=== PATIENT | male | born 1950 | race African-American/Black ===

== ENCOUNTER 2021-09-20 20:59 | Emergency (ER) | payer MEDICARE ==
[2021-09-20 21:43] LABS: #Eosinphils 0.2 thou/uL (0.0-0.7); #Lymphocytes 1.8 thou/uL (1.20-3.40); #Monocytes 0.6 thou/uL (0.11-0.59); #Neutrophils 3.2 thou/uL (1.40-6.50); %Basophils 0.5 % (0.0-1.0); %Eosinophils 3.8 % (0.0-10.0); %Lymphocytes 31.3 % (21.0-51.0); %Monocytes 9.5 % (0.0-10.0); %Neutrophils 54.8 % (42.0-75.0); Hemoglobin 12.7 g/dL (14.0-18.0); Mean Corpuscular HGB CONC 30.1 g/dL (32.0-36.0); Mean Corpuscular Hemoglobin 29.9 pg (27.0-31.0); Mean Corpuscular Volume 99.3 fL (78.0-98.0); Mean Platelet Volume 8.6 fL (7.4-10.4); Platelet Count 151 thou/uL (130-400); RBC Distribution Width 13.3 % (11.5-14.5); Red Blood Cell (RBC) Count 4.25 mill/uL (4.70-6.10); White Blood Cell (WBC) Count 5.8 thou/uL (4.8-10.8)
[2021-09-20 22:02] LABS: ALT (SGPT) 11 U/L (8-55); AST (SGOT) 19 U/L (5-34); Albumin 4.1 g/dL (3.4-4.8); Alkaline Phosphatase 70 U/L (40-110); Anion Gap 13 mmol/L (10-20); BUN (Urea Nitrogen) 40 mg/dL (8.4-25.7); Bilirubin, Total 0.4 mg/dL (0.2-1.2); Calc. Creatinine Clearance 0 mL/min (70-130); Calcium 9.1 mg/dL (7.8-10.44); Carbon Dioxide 21 mmol/L (23-31); Chloride 110 mmol/L (98-107); Globulin 3.2 g/dL (2.4-3.5); Glucose 89 mg/dL (80-115); Potassium 4.3 mmol/L (3.5-5.1); Protein, Total 7.3 g/dL (5.8-8.1); Sodium 140 mmol/L (136-145)
[2021-09-21] MEDS ORDERED: Aspirin Chewable 81 MG TAB ONE (00:14)
[2021-09-21 01:03] LABS: SARS-CoV-2 NAA Rapid Test Not Detected (NotDetected)
== END 2021-09-21 02:59 | disposition short-term general hospital (02) ==
LOC: MADERS 20:59
DX: G45.9 Transient cerebral ischemic attack, unspecified (principal); I12.9 Hypertensive chronic kidney disease with stage 1 through stage 4 chronic kidney disease, or unspecified chronic kidney disease; N18.9 Chronic kidney disease, unspecified; E87.2 Acidosis; Z20.822 Contact with and (suspected) exposure to COVID-19; F17.200 Nicotine dependence, unspecified, uncomplicated
CPT/HCPCS: 36416; 70450; 71045; 80053; 84484; 85025; 85610; 93005; 36415-59; U0002

== ENCOUNTER 2021-12-26 12:33 | Outpatient (CLI) | payer MEDICARE | END 2021-12-26 12:34 | disposition home or self-care (01) | LOC: MADLAB 12:33 | PROVIDERS: ATTEND Family Medicine | DX: M86.9 Osteomyelitis, unspecified (principal) | CPT/HCPCS: 87070; 87077; 87186; 87205 ==

== ENCOUNTER 2022-02-16 15:22 | Outpatient (CLI) | payer MEDICARE ==
[2022-02-16 16:21] LABS: ALT (SGPT) 72 U/L (8-55); AST (SGOT) 60 U/L (5-34); Albumin 3.9 g/dL (3.4-4.8); Alkaline Phosphatase 60 U/L (40-110); Anion Gap 17 mmol/L (10-20); BUN (Urea Nitrogen) 35 mg/dL (8.4-25.7); Bilirubin, Total 1.3 mg/dL (0.2-1.2); CRP (Inflammatory) 4.95 mg/dL (= or < 0.5); Calc. Creatinine Clearance 0 mL/min (70-130); Calcium 8.6 mg/dL (7.8-10.44); Carbon Dioxide 19 mmol/L (23-31); Chloride 108 mmol/L (98-107); Globulin 2.4 g/dL (2.4-3.5); Glucose 86 mg/dL (80-115); Potassium 4.4 mmol/L (3.5-5.1); Protein, Total 6.3 g/dL (5.8-8.1); Sodium 140 mmol/L (136-145)
[2022-02-16 16:49] LABS: #Eosinphils 0.2 thou/uL (0.0-0.7); #Lymphocytes 1.1 thou/uL (1.20-3.40); #Monocytes 0.6 thou/uL (0.11-0.59); %Basophils 0.6 % (0.0-1.0); %Lymphocytes 13.9 % (21.0-51.0); %Monocytes 7.1 % (0.0-10.0); %Neutrophils 76.5 % (42.0-75.0); Anisocytosis SLIGHT = 6-15 cells (100X) (0-5/hpf); Hemoglobin 9.2 g/dL (14.0-18.0); Hypochromia SLIGHT = 6-15 cells (100X) (0-5/hpf); MDiff Complete? YES; Mean Corpuscular HGB CONC 30.3 g/dL (32.0-36.0); Mean Corpuscular Hemoglobin 29.4 pg (27.0-31.0); Mean Corpuscular Volume 96.9 fL (78.0-98.0); Mean Platelet Volume 11.2 fL (7.4-10.4); Platelet Count 112 thou/uL (130-400); Platelet Morphology Comment Appears Decreased; RBC Distribution Width 14.2 % (11.5-14.5); Red Blood Cell (RBC) Count 3.12 mill/uL (4.70-6.10); White Blood Cell (WBC) Count 7.9 thou/uL (4.8-10.8)
[2022-02-16 23:21] LABS: Follow-up Hematology Comp? YES; Follow-up Result - Hematology REPORT FAXED
== END 2022-02-16 15:23 | disposition home or self-care (01) ==
LOC: MADLAB 15:22
PROVIDERS: ATTEND Orthopaedic Surgery Sports Medicine
DX: M86.151 Other acute osteomyelitis, right femur (principal); B96.20 Unspecified Escherichia coli [E. coli] as the cause of diseases classified elsewhere; Z79.2 Long term (current) use of antibiotics
CPT/HCPCS: 80053; 85025; 85652; 86140

== ENCOUNTER 2022-02-22 13:43 | Inpatient (IN) | payer MEDICARE ==
[2022-02-22 15:56] LABS: #Basophils 0.1 thou/uL (0.0-0.2); #Eosinphils 0.1 thou/uL (0.0-0.7); #Lymphocytes 1.1 thou/uL (1.20-3.40); #Monocytes 0.6 thou/uL (0.11-0.59); #Neutrophils 7.1 thou/uL (1.40-6.50); %Basophils 0.6 % (0.0-1.0); %Eosinophils 1.1 % (0.0-10.0); %Lymphocytes 12.3 % (21.0-51.0); Hemoglobin 9.5 g/dL (14.0-18.0); Mean Corpuscular HGB CONC 31.6 g/dL (32.0-36.0); Mean Corpuscular Hemoglobin 30.1 pg (27.0-31.0); Mean Corpuscular Volume 95.3 fL (78.0-98.0); Mean Platelet Volume 9.8 fL (7.4-10.4); Platelet Count 188 thou/uL (130-400); RBC Distribution Width 14.1 % (11.5-14.5); Red Blood Cell (RBC) Count 3.15 mill/uL (4.70-6.10); White Blood Cell (WBC) Count 8.9 thou/uL (4.8-10.8)
[2022-02-22 16:09] LABS: ALT (SGPT) 22 U/L (8-55); AST (SGOT) 23 U/L (5-34); Albumin 3.8 g/dL (3.4-4.8); Alkaline Phosphatase 58 U/L (40-110); Anion Gap 17 mmol/L (10-20); BUN (Urea Nitrogen) 32 mg/dL (8.4-25.7); Calc. Creatinine Clearance 0 mL/min (70-130); Calcium 8.8 mg/dL (7.8-10.44); Carbon Dioxide 16 mmol/L (23-31); Chloride 112 mmol/L (98-107); Globulin 2.8 g/dL (2.4-3.5); Glucose 87 mg/dL (80-115); Potassium 4.3 mmol/L (3.5-5.1); Protein, Total 6.6 g/dL (5.8-8.1); Sodium 141 mmol/L (136-145)
[2022-02-22] MEDS ORDERED: HYDROcodone/Acetaminophen 5/325 mg Tablet PO PRN (23:21)
[2022-02-22] MEDS ORDERED: HYDROcodone/Acetaminophen 10/325 mg Tablet PO PRN (23:21)
[2022-02-22] MEDS ORDERED: Acetaminophen 325 MG TAB PO PRN (23:21)
[2022-02-22] MEDS ORDERED: Ondansetron ODT 4 MG TAB PO PRN (23:21)
[2022-02-22] MEDS ORDERED: tiZANidine HCl 4 MG TAB PO PRN (23:24)
[2022-02-23 00:17] VITALS: BMI 17.8
[2022-02-23] MEDS: Losartan Potassium 50 MG TAB PO SCH (08:55)
[2022-02-23] MEDS: Aspirin 81 mg Enteric Coated Tablet PO SCH (08:57)
[2022-02-23] MEDS: Dorzolamide HCl 2% Ophth Soln 10 ml Bottle L EYE SCH ×2 (08:59→20:36)
[2022-02-23] MEDS ORDERED: Famotidine 20 MG TAB PO SCH (09:00)
[2022-02-23] MEDS: Pilocarpine 2% Ophth Drops 15 ML BOT L EYE SCH ×4 (09:00→20:37)
[2022-02-23] MEDS: IMATINIB MESYLATE 100 MG PO SCH ×3 (09:07→17:01)
[2022-02-23] MEDS ORDERED: Ampicillin/Sulbactam 3 GM in Sodium Chloride 0.9% 100 ML IVPB SCH (12:30)
[2022-02-23 19:50] LABS: SARS-CoV-2 PCR by NAA Not Detected (NotDetected)
[2022-02-23] MEDS: Gabapentin 300 MG CAP PO SCH (20:35)
[2022-02-23] MEDS: Atorvastatin Calcium 40 MG TAB PO SCH (20:35)
[2022-02-23] MEDS: Ampicillin/Sulbactam 3 GM in Sodium Chloride 0.9% 100 ML IVPB SCH (20:35)
[2022-02-23] MEDS: Cyclobenzaprine 10 MG TAB PO SCH (20:36)
[2022-02-23] MEDS: Latanoprost 0.005% Ophth Soln 2.5 ml Bottle EA EYE SCH (20:37)
[2022-02-23] MEDS: LOTEPREDNOL ETABONATE R EYE SCH (20:39)
[2022-02-24] MEDS: Pilocarpine 2% Ophth Drops 15 ML BOT L EYE SCH ×4 (09:21→21:02)
[2022-02-24] MEDS: Aspirin 81 mg Enteric Coated Tablet PO SCH (09:27)
[2022-02-24] MEDS: Losartan Potassium 50 MG TAB PO SCH (09:27)
[2022-02-24] MEDS: IMATINIB MESYLATE 100 MG PO SCH ×3 (09:28→17:38)
[2022-02-24] MEDS: Ampicillin/Sulbactam 3 GM in Sodium Chloride 0.9% 100 ML IVPB SCH ×2 (09:30→20:47)
[2022-02-24] MEDS: Dorzolamide HCl 2% Ophth Soln 10 ml Bottle L EYE SCH ×2 (09:36→21:05)
[2022-02-24] MEDS ORDERED: LOTEPREDNOL ETABONATE R EYE SCH (13:30)
[2022-02-24] MEDS: Nystatin 500,000 UNITS/5 ML UDCUP SSW SCH ×2 (17:37→21:02)
[2022-02-24] MEDS: Gabapentin 300 MG CAP PO SCH (20:52)
[2022-02-24] MEDS: Atorvastatin Calcium 40 MG TAB PO SCH (20:52)
[2022-02-24] MEDS: Cyclobenzaprine 10 MG TAB PO SCH (20:56)
[2022-02-24] MEDS: Latanoprost 0.005% Ophth Soln 2.5 ml Bottle EA EYE SCH (21:00)
[2022-02-25 07:33] VITALS: BP 112/58; TEMP 97.1
[2022-02-25] MEDS: IMATINIB MESYLATE 100 MG PO SCH ×2 (08:43→11:47)
[2022-02-25] MEDS: Ampicillin/Sulbactam 3 GM in Sodium Chloride 0.9% 100 ML IVPB SCH (08:44)
[2022-02-25] MEDS: Dorzolamide HCl 2% Ophth Soln 10 ml Bottle L EYE SCH (08:45)
[2022-02-25] MEDS: Aspirin 81 mg Enteric Coated Tablet PO SCH (08:45)
[2022-02-25] MEDS: Losartan Potassium 50 MG TAB PO SCH (08:46)
[2022-02-25] MEDS: Nystatin 500,000 UNITS/5 ML UDCUP SSW SCH (08:47)
[2022-02-25] MEDS: LOTEPREDNOL ETABONATE R EYE SCH (08:47)
[2022-02-25] MEDS: Pilocarpine 2% Ophth Drops 15 ML BOT L EYE SCH (08:51)
[2022-02-25] MEDS ORDERED: LOTEPREDNOL ETABONATE R EYE SCH (09:00)
[2022-02-25] MEDS ORDERED: LUMIGAN 0.01% EA EYE SCH (21:00)
[2022-02-25] MEDS ORDERED: Latanoprost 0.005% Ophth Soln 2.5 ml Bottle EA EYE SCH (21:00)
== END 2022-02-25 13:27 | disposition swing bed (61) | DRG 540 ==
LOC: MADERS 13:43 → MADMS 19:29
PROVIDERS: ADMIT Family Medicine; ATTEND Family Medicine
DX: M86.9 Osteomyelitis, unspecified (principal); C92.10 Chronic myeloid leukemia, BCR/ABL-positive, not having achieved remission; N18.4 Chronic kidney disease, stage 4 (severe); B37.0 Candidal stomatitis; R26.81 Unsteadiness on feet; I12.9 Hypertensive chronic kidney disease with stage 1 through stage 4 chronic kidney disease, or unspecified chronic kidney disease; S81.801A Unspecified open wound, right lower leg, initial encounter; X58.XXXA Exposure to other specified factors, initial encounter; H40.9 Unspecified glaucoma; F17.210 Nicotine dependence, cigarettes, uncomplicated; Z20.822 Contact with and (suspected) exposure to COVID-19; Z86.73 Personal history of transient ischemic attack (TIA), and cerebral infarction without residual deficits; Z79.82 Long term (current) use of aspirin; Z98.890 Other specified postprocedural states
CPT/HCPCS: 36415; 80053; 83605; 85025; 86140; 87040; 87070; 87205; 97602; 99284; J0295; J3490; U0003; U0005

== ENCOUNTER 2022-02-25 13:32 | Inpatient (IN) | payer MEDICARE ==
[2022-02-25] MEDS ORDERED: HYDROcodone/Acetaminophen 5/325 mg Tablet PO PRN (16:34)
[2022-02-25] MEDS ORDERED: HYDROcodone/Acetaminophen 10/325 mg Tablet PO PRN (16:34)
[2022-02-25] MEDS ORDERED: Ondansetron ODT 4 MG TAB SL PRN (16:34)
[2022-02-25] MEDS ORDERED: tiZANidine HCl 4 MG TAB PO PRN (16:34)
[2022-02-25] MEDS: Nystatin 500,000 UNITS/5 ML UDCUP SSW SCH ×2 (17:03→20:46)
[2022-02-25] MEDS: Pilocarpine 2% Ophth Drops 15 ML BOT L EYE SCH ×2 (17:03→20:48)
[2022-02-25] MEDS: Ampicillin/Sulbactam 3 GM VIAL IVPB SCH (20:45)
[2022-02-25] MEDS: Gabapentin 300 MG CAP PO SCH (20:45)
[2022-02-25] MEDS: Atorvastatin Calcium 40 MG TAB PO SCH (20:45)
[2022-02-25] MEDS: Cyclobenzaprine 10 MG TAB PO SCH (20:45)
[2022-02-25] MEDS: Dorzolamide HCl 2% Ophth Soln 10 ml Bottle EA EYE SCH (20:46)
[2022-02-25] MEDS ORDERED: Latanoprost 0.005% Ophth Soln 2.5 ml Bottle EA EYE SCH (21:00)
[2022-02-25] MEDS ORDERED: BIMATOPROST EA EYE SCH (21:00)
[2022-02-25] MEDS ORDERED: LUMIGAN 0.01% EA EYE SCH (21:00)
[2022-02-25] MEDS ORDERED: BOT EA EYE SCH (21:00)
[2022-02-26] MEDS: Nystatin 500,000 UNITS/5 ML UDCUP SSW SCH ×4 (08:54→20:42)
[2022-02-26] MEDS: Losartan Potassium 50 MG TAB PO SCH (08:54)
[2022-02-26] MEDS: Aspirin 81 mg Enteric Coated Tablet PO SCH (08:54)
[2022-02-26] MEDS: Pilocarpine 2% Ophth Drops 15 ML BOT L EYE SCH ×4 (08:55→20:42)
[2022-02-26] MEDS: Dorzolamide HCl 2% Ophth Soln 10 ml Bottle EA EYE SCH ×2 (08:55→20:43)
[2022-02-26] MEDS: Ampicillin/Sulbactam 3 GM VIAL IVPB SCH ×2 (08:56→20:40)
[2022-02-26] MEDS: IMATINIB MESYLATE 100 MG PO SCH (11:13)
[2022-02-26] MEDS ORDERED: Imatinib Mesylate [Gleevec] 100 MG Tablet PO SCH ×3 (12:00→15:00)
[2022-02-26] MEDS: Imatinib Mesylate [Gleevec] 100 MG Tablet PO SCH (18:04)
[2022-02-26] MEDS: Gabapentin 300 MG CAP PO SCH (20:41)
[2022-02-26] MEDS: Cyclobenzaprine 10 MG TAB PO SCH (20:42)
[2022-02-26] MEDS: Atorvastatin Calcium 40 MG TAB PO SCH (20:42)
[2022-02-26] MEDS: LOTEPREDNOL ETABONATE 0.5% R EYE SCH (20:44)
[2022-02-26] MEDS: LUMIGAN 0.01% OPHTHALMIC SOLUTION EA EYE SCH (20:44)
[2022-02-27] MEDS: Pilocarpine 2% Ophth Drops 15 ML BOT L EYE SCH ×4 (08:58→21:14)
[2022-02-27] MEDS: Dorzolamide HCl 2% Ophth Soln 10 ml Bottle EA EYE SCH ×2 (08:58→21:13)
[2022-02-27] MEDS: Aspirin 81 mg Enteric Coated Tablet PO SCH (08:59)
[2022-02-27] MEDS: Imatinib Mesylate [Gleevec] 100 MG Tablet PO SCH ×3 (08:59→17:52)
[2022-02-27] MEDS: Ampicillin/Sulbactam 3 GM VIAL IVPB SCH (08:59)
[2022-02-27] MEDS: Nystatin 500,000 UNITS/5 ML UDCUP SSW SCH ×4 (08:59→21:13)
[2022-02-27] MEDS: Losartan Potassium 50 MG TAB PO SCH (08:59)
[2022-02-27] MEDS: Ampicillin/Sulbactam 3 GM in Sodium Chloride 0.9% 100 ML IVPB SCH (21:10)
[2022-02-27] MEDS: Cyclobenzaprine 10 MG TAB PO SCH (21:11)
[2022-02-27] MEDS: Gabapentin 300 MG CAP PO SCH (21:12)
[2022-02-27] MEDS: Atorvastatin Calcium 40 MG TAB PO SCH (21:19)
[2022-02-27] MEDS: LUMIGAN 0.01% OPHTHALMIC SOLUTION EA EYE SCH (21:19)
[2022-02-27] MEDS: LOTEPREDNOL ETABONATE 0.5% R EYE SCH (21:20)
[2022-02-28] MEDS: Dorzolamide HCl 2% Ophth Soln 10 ml Bottle EA EYE SCH ×2 (09:59→20:54)
[2022-02-28] MEDS: Nystatin 500,000 UNITS/5 ML UDCUP SSW SCH ×4 (10:02→20:57)
[2022-02-28] MEDS: Pilocarpine 2% Ophth Drops 15 ML BOT L EYE SCH ×4 (10:03→20:55)
[2022-02-28] MEDS: Imatinib Mesylate [Gleevec] 100 MG Tablet PO SCH ×3 (10:05→17:26)
[2022-02-28] MEDS: Losartan Potassium 50 MG TAB PO SCH (10:06)
[2022-02-28] MEDS: Aspirin 81 mg Enteric Coated Tablet PO SCH (10:06)
[2022-02-28] MEDS: Ampicillin/Sulbactam 3 GM in Sodium Chloride 0.9% 100 ML IVPB SCH ×2 (10:06→20:57)
[2022-02-28] MEDS: LOTEPREDNOL ETABONATE 0.5% R EYE SCH (20:54)
[2022-02-28] MEDS: LUMIGAN 0.01% OPHTHALMIC SOLUTION EA EYE SCH (20:55)
[2022-02-28] MEDS: Cyclobenzaprine 10 MG TAB PO SCH (20:56)
[2022-02-28] MEDS: Gabapentin 300 MG CAP PO SCH (20:57)
[2022-02-28] MEDS: Atorvastatin Calcium 40 MG TAB PO SCH (20:57)
[2022-03-01] MEDS: Ampicillin/Sulbactam 3 GM in Sodium Chloride 0.9% 100 ML IVPB SCH ×2 (09:45→21:03)
[2022-03-01] MEDS: Dorzolamide HCl 2% Ophth Soln 10 ml Bottle EA EYE SCH ×2 (09:45→20:57)
[2022-03-01] MEDS: Nystatin 500,000 UNITS/5 ML UDCUP SSW SCH ×4 (09:47→20:55)
[2022-03-01] MEDS: Aspirin 81 mg Enteric Coated Tablet PO SCH (09:47)
[2022-03-01] MEDS: Pilocarpine 2% Ophth Drops 15 ML BOT L EYE SCH ×4 (09:50→20:56)
[2022-03-01] MEDS: Losartan Potassium 50 MG TAB PO SCH (09:51)
[2022-03-01] MEDS: Imatinib Mesylate [Gleevec] 100 MG Tablet PO SCH ×3 (09:51→17:29)
[2022-03-01] MEDS: Atorvastatin Calcium 40 MG TAB PO SCH (20:55)
[2022-03-01] MEDS: Cyclobenzaprine 10 MG TAB PO SCH (20:55)
[2022-03-01] MEDS: Gabapentin 300 MG CAP PO SCH (20:55)
[2022-03-01] MEDS: LUMIGAN 0.01% OPHTHALMIC SOLUTION EA EYE SCH (20:56)
[2022-03-01] MEDS: LOTEPREDNOL ETABONATE 0.5% R EYE SCH (20:57)
[2022-03-01] MEDS: Acetaminophen 325 MG TAB PO PRN (21:01)
[2022-03-02] MEDS: Nystatin 500,000 UNITS/5 ML UDCUP SSW SCH ×4 (07:58→21:15)
[2022-03-02] MEDS: Losartan Potassium 50 MG TAB PO SCH (07:58)
[2022-03-02] MEDS: Ampicillin/Sulbactam 3 GM in Sodium Chloride 0.9% 100 ML IVPB SCH ×2 (07:58→21:39)
[2022-03-02] MEDS: Dorzolamide HCl 2% Ophth Soln 10 ml Bottle EA EYE SCH ×2 (07:58→21:13)
[2022-03-02] MEDS: Aspirin 81 mg Enteric Coated Tablet PO SCH (07:58)
[2022-03-02] MEDS: Imatinib Mesylate [Gleevec] 100 MG Tablet PO SCH ×3 (07:59→17:00)
[2022-03-02] MEDS: Polyethylene Glycol 3350 17 GM Packet PO SCH (07:59)
[2022-03-02] MEDS: Pilocarpine 2% Ophth Drops 15 ML BOT L EYE SCH ×4 (07:59→21:37)
[2022-03-02 20:27] LABS: SARS-CoV-2 PCR by NAA Not Detected (NotDetected)
[2022-03-02] MEDS: LUMIGAN 0.01% OPHTHALMIC SOLUTION EA EYE SCH (21:13)
[2022-03-02] MEDS: LOTEPREDNOL ETABONATE 0.5% R EYE SCH (21:14)
[2022-03-02] MEDS: Atorvastatin Calcium 40 MG TAB PO SCH (21:15)
[2022-03-02] MEDS: Cyclobenzaprine 10 MG TAB PO SCH (21:15)
[2022-03-02] MEDS: Gabapentin 300 MG CAP PO SCH (21:15)
[2022-03-03] MEDS: Ampicillin/Sulbactam 3 GM in Sodium Chloride 0.9% 100 ML IVPB SCH ×2 (08:27→20:55)
[2022-03-03] MEDS: Nystatin 500,000 UNITS/5 ML UDCUP SSW SCH ×4 (08:31→20:56)
[2022-03-03] MEDS: Losartan Potassium 50 MG TAB PO SCH (08:31)
[2022-03-03] MEDS: Imatinib Mesylate [Gleevec] 100 MG Tablet PO SCH ×3 (08:31→17:39)
[2022-03-03] MEDS: Aspirin 81 mg Enteric Coated Tablet PO SCH (08:31)
[2022-03-03] MEDS: Polyethylene Glycol 3350 17 GM Packet PO SCH (08:32)
[2022-03-03] MEDS: Dorzolamide HCl 2% Ophth Soln 10 ml Bottle EA EYE SCH ×2 (08:33→20:53)
[2022-03-03] MEDS: Pilocarpine 2% Ophth Drops 15 ML BOT L EYE SCH ×4 (08:33→20:52)
[2022-03-03] MEDS: Acetaminophen 325 MG TAB PO PRN (10:06)
[2022-03-03] MEDS: LUMIGAN 0.01% OPHTHALMIC SOLUTION EA EYE SCH (20:54)
[2022-03-03] MEDS: LOTEPREDNOL ETABONATE 0.5% R EYE SCH (20:54)
[2022-03-03] MEDS: Gabapentin 300 MG CAP PO SCH (20:55)
[2022-03-03] MEDS: Atorvastatin Calcium 40 MG TAB PO SCH (20:56)
[2022-03-03] MEDS: Cyclobenzaprine 10 MG TAB PO SCH (20:56)
[2022-03-04] MEDS: Dorzolamide HCl 2% Ophth Soln 10 ml Bottle EA EYE SCH ×2 (09:06→21:09)
[2022-03-04] MEDS: Imatinib Mesylate [Gleevec] 100 MG Tablet PO SCH ×3 (09:06→17:27)
[2022-03-04] MEDS: Losartan Potassium 50 MG TAB PO SCH (09:07)
[2022-03-04] MEDS: Aspirin 81 mg Enteric Coated Tablet PO SCH (09:07)
[2022-03-04] MEDS: Polyethylene Glycol 3350 17 GM Packet PO SCH (09:08)
[2022-03-04] MEDS: Ampicillin/Sulbactam 3 GM in Sodium Chloride 0.9% 100 ML IVPB SCH ×2 (09:08→21:07)
[2022-03-04] MEDS: Nystatin 500,000 UNITS/5 ML UDCUP SSW SCH (09:08)
[2022-03-04] MEDS: Pilocarpine 2% Ophth Drops 15 ML BOT L EYE SCH ×4 (09:10→21:10)
[2022-03-04] MEDS ORDERED: Polyethylene Glycol 3350 17 GM Packet PO PRN (09:43)
[2022-03-04] MEDS: Cyclobenzaprine 10 MG TAB PO SCH (21:07)
[2022-03-04] MEDS: Gabapentin 300 MG CAP PO SCH (21:07)
[2022-03-04] MEDS: LOTEPREDNOL ETABONATE 0.5% R EYE SCH (21:08)
[2022-03-04] MEDS: LUMIGAN 0.01% OPHTHALMIC SOLUTION EA EYE SCH (21:08)
[2022-03-04] MEDS: Atorvastatin Calcium 40 MG TAB PO SCH (21:08)
[2022-03-05 05:36] LABS: #Basophils 0.1 thou/uL (0.0-0.2); #Eosinphils 0.4 thou/uL (0.0-0.7); #Lymphocytes 1.4 thou/uL (1.20-3.40); #Monocytes 0.5 thou/uL (0.11-0.59); #Neutrophils 4.3 thou/uL (1.40-6.50); %Basophils 0.8 % (0.0-1.0); %Eosinophils 6.2 % (0.0-10.0); %Lymphocytes 21.2 % (21.0-51.0); %Monocytes 7.9 % (0.0-10.0); Hemoglobin 8.3 g/dL (14.0-18.0); Mean Corpuscular HGB CONC 31.4 g/dL (32.0-36.0); Mean Corpuscular Hemoglobin 29.6 pg (27.0-31.0); Mean Corpuscular Volume 94.5 fL (78.0-98.0); Mean Platelet Volume 9.4 fL (7.4-10.4); Platelet Count 107 thou/uL (130-400); Platelet Morphology Comment Appears Decreased; RBC Distribution Width 14.7 % (11.5-14.5); Red Blood Cell (RBC) Count 2.81 mill/uL (4.70-6.10); White Blood Cell (WBC) Count 6.8 thou/uL (4.8-10.8)
[2022-03-05 05:44] LABS: ALT (SGPT) 10 U/L (8-55); AST (SGOT) 18 U/L (5-34); Alkaline Phosphatase 52 U/L (40-110); Anion Gap 14 mmol/L (10-20); BUN (Urea Nitrogen) 38 mg/dL (8.4-25.7); Bilirubin, Total 0.5 mg/dL (0.2-1.2); CRP (Inflammatory) 1.42 mg/dL (= or < 0.5); Calc. Creatinine Clearance 22 mL/min (70-130); Calcium 8.2 mg/dL (7.8-10.44); Carbon Dioxide 19 mmol/L (23-31); Chloride 113 mmol/L (98-107); Globulin 2.4 g/dL (2.4-3.5); Glucose 99 mg/dL (80-115); Protein, Total 5.4 g/dL (5.8-8.1)
[2022-03-05 05:49] LABS: Sodium 142 mmol/L (136-145)
[2022-03-05] MEDS: Ampicillin/Sulbactam 3 GM in Sodium Chloride 0.9% 100 ML IVPB SCH ×2 (08:12→21:31)
[2022-03-05] MEDS: Pilocarpine 2% Ophth Drops 15 ML BOT L EYE SCH ×4 (08:13→21:34)
[2022-03-05] MEDS: Aspirin 81 mg Enteric Coated Tablet PO SCH (08:13)
[2022-03-05] MEDS: Losartan Potassium 50 MG TAB PO SCH (08:13)
[2022-03-05] MEDS: Dorzolamide HCl 2% Ophth Soln 10 ml Bottle EA EYE SCH ×2 (08:14→21:32)
[2022-03-05] MEDS: Imatinib Mesylate [Gleevec] 100 MG Tablet PO SCH ×3 (08:15→16:36)
[2022-03-05] MEDS: Gabapentin 300 MG CAP PO SCH (21:30)
[2022-03-05] MEDS: Cyclobenzaprine 10 MG TAB PO SCH (21:31)
[2022-03-05] MEDS: Atorvastatin Calcium 40 MG TAB PO SCH (21:31)
[2022-03-05] MEDS: LOTEPREDNOL ETABONATE 0.5% R EYE SCH (21:33)
[2022-03-05] MEDS: LUMIGAN 0.01% OPHTHALMIC SOLUTION EA EYE SCH (21:34)
[2022-03-06] MEDS: Ampicillin/Sulbactam 3 GM in Sodium Chloride 0.9% 100 ML IVPB SCH ×2 (08:13→21:28)
[2022-03-06] MEDS: Dorzolamide HCl 2% Ophth Soln 10 ml Bottle EA EYE SCH ×2 (08:14→21:23)
[2022-03-06] MEDS: Pilocarpine 2% Ophth Drops 15 ML BOT L EYE SCH ×4 (08:15→21:24)
[2022-03-06] MEDS: Aspirin 81 mg Enteric Coated Tablet PO SCH (08:16)
[2022-03-06] MEDS: Losartan Potassium 50 MG TAB PO SCH (08:16)
[2022-03-06] MEDS: Imatinib Mesylate [Gleevec] 100 MG Tablet PO SCH ×3 (08:16→17:37)
[2022-03-06] MEDS: LOTEPREDNOL ETABONATE 0.5% R EYE SCH (21:22)
[2022-03-06] MEDS: LUMIGAN 0.01% OPHTHALMIC SOLUTION EA EYE SCH (21:24)
[2022-03-06] MEDS: Atorvastatin Calcium 40 MG TAB PO SCH (21:25)
[2022-03-06] MEDS: Cyclobenzaprine 10 MG TAB PO SCH (21:25)
[2022-03-06] MEDS: Acetaminophen 325 MG TAB PO PRN (21:26)
[2022-03-06] MEDS: Gabapentin 300 MG CAP PO SCH (21:26)
[2022-03-07] MEDS: Ampicillin/Sulbactam 3 GM in Sodium Chloride 0.9% 100 ML IVPB SCH ×2 (08:36→21:53)
[2022-03-07] MEDS: Losartan Potassium 50 MG TAB PO SCH (08:36)
[2022-03-07] MEDS: Aspirin 81 mg Enteric Coated Tablet PO SCH (08:36)
[2022-03-07] MEDS: Imatinib Mesylate [Gleevec] 100 MG Tablet PO SCH ×3 (08:36→17:16)
[2022-03-07] MEDS: Dorzolamide HCl 2% Ophth Soln 10 ml Bottle EA EYE SCH ×2 (08:37→21:50)
[2022-03-07] MEDS: Pilocarpine 2% Ophth Drops 15 ML BOT L EYE SCH ×4 (08:37→21:50)
[2022-03-07] MEDS ORDERED: LOTEPREDNOL ETABONATE 0.5% R EYE SCH (12:30)
[2022-03-07] MEDS: LOTEPREDNOL ETABONATE 0.5% R EYE SCH (12:58)
[2022-03-07] MEDS: LUMIGAN 0.01% OPHTHALMIC SOLUTION EA EYE SCH (21:50)
[2022-03-07] MEDS: Cyclobenzaprine 10 MG TAB PO SCH (21:51)
[2022-03-07] MEDS: Acetaminophen 325 MG TAB PO PRN (21:51)
[2022-03-07] MEDS: Gabapentin 300 MG CAP PO SCH (21:51)
[2022-03-07] MEDS: Atorvastatin Calcium 40 MG TAB PO SCH (21:51)
[2022-03-08] MEDS: Dorzolamide HCl 2% Ophth Soln 10 ml Bottle EA EYE SCH ×2 (08:19→21:33)
[2022-03-08] MEDS: Pilocarpine 2% Ophth Drops 15 ML BOT L EYE SCH ×4 (08:19→21:33)
[2022-03-08] MEDS: Losartan Potassium 50 MG TAB PO SCH (08:19)
[2022-03-08] MEDS: Aspirin 81 mg Enteric Coated Tablet PO SCH (08:19)
[2022-03-08] MEDS: Ampicillin/Sulbactam 3 GM in Sodium Chloride 0.9% 100 ML IVPB SCH ×2 (08:19→21:26)
[2022-03-08] MEDS: LOTEPREDNOL ETABONATE 0.5% R EYE SCH (08:20)
[2022-03-08] MEDS: Imatinib Mesylate [Gleevec] 100 MG Tablet PO SCH ×3 (08:20→16:47)
[2022-03-08 18:05] LABS: SARS-CoV-2 PCR by NAA Not Detected (NotDetected)
[2022-03-08] MEDS: Cyclobenzaprine 10 MG TAB PO SCH (21:27)
[2022-03-08] MEDS: Gabapentin 300 MG CAP PO SCH (21:27)
[2022-03-08] MEDS: Atorvastatin Calcium 40 MG TAB PO SCH (21:27)
[2022-03-08] MEDS: LUMIGAN 0.01% OPHTHALMIC SOLUTION EA EYE SCH (21:33)
[2022-03-09] MEDS: Ampicillin/Sulbactam 3 GM in Sodium Chloride 0.9% 100 ML IVPB SCH ×2 (08:48→20:48)
[2022-03-09] MEDS: Aspirin 81 mg Enteric Coated Tablet PO SCH (08:50)
[2022-03-09] MEDS: Imatinib Mesylate [Gleevec] 100 MG Tablet PO SCH ×3 (08:51→16:58)
[2022-03-09] MEDS: Dorzolamide HCl 2% Ophth Soln 10 ml Bottle EA EYE SCH ×2 (08:51→20:49)
[2022-03-09] MEDS: Losartan Potassium 50 MG TAB PO SCH (08:52)
[2022-03-09] MEDS: LOTEPREDNOL ETABONATE 0.5% R EYE SCH (08:53)
[2022-03-09] MEDS: Pilocarpine 2% Ophth Drops 15 ML BOT L EYE SCH ×4 (08:54→20:49)
[2022-03-09] MEDS: Atorvastatin Calcium 40 MG TAB PO SCH (20:48)
[2022-03-09] MEDS: Cyclobenzaprine 10 MG TAB PO SCH (20:48)
[2022-03-09] MEDS: Gabapentin 300 MG CAP PO SCH (20:48)
[2022-03-09] MEDS: LUMIGAN 0.01% OPHTHALMIC SOLUTION EA EYE SCH (20:49)
[2022-03-10] MEDS: Losartan Potassium 50 MG TAB PO SCH (08:35)
[2022-03-10] MEDS: Aspirin 81 mg Enteric Coated Tablet PO SCH (08:35)
[2022-03-10] MEDS: Imatinib Mesylate [Gleevec] 100 MG Tablet PO SCH ×3 (08:35→16:57)
[2022-03-10] MEDS: Ampicillin/Sulbactam 3 GM in Sodium Chloride 0.9% 100 ML IVPB SCH ×2 (08:36→21:15)
[2022-03-10] MEDS: LOTEPREDNOL ETABONATE 0.5% R EYE SCH (08:36)
[2022-03-10] MEDS: Dorzolamide HCl 2% Ophth Soln 10 ml Bottle EA EYE SCH ×2 (08:38→21:21)
[2022-03-10] MEDS: Pilocarpine 2% Ophth Drops 15 ML BOT L EYE SCH ×4 (08:39→21:21)
[2022-03-10] MEDS: Atorvastatin Calcium 40 MG TAB PO SCH (21:16)
[2022-03-10] MEDS: Cyclobenzaprine 10 MG TAB PO SCH (21:16)
[2022-03-10] MEDS: Gabapentin 300 MG CAP PO SCH (21:16)
[2022-03-10] MEDS: LUMIGAN 0.01% OPHTHALMIC SOLUTION EA EYE SCH (21:22)
[2022-03-11] MEDS: Aspirin 81 mg Enteric Coated Tablet PO SCH (09:21)
[2022-03-11] MEDS: Losartan Potassium 50 MG TAB PO SCH (09:21)
[2022-03-11] MEDS: Ampicillin/Sulbactam 3 GM in Sodium Chloride 0.9% 100 ML IVPB SCH ×2 (09:21→21:14)
[2022-03-11] MEDS: Dorzolamide HCl 2% Ophth Soln 10 ml Bottle EA EYE SCH ×2 (09:24→21:24)
[2022-03-11] MEDS: Imatinib Mesylate [Gleevec] 100 MG Tablet PO SCH ×3 (09:25→17:17)
[2022-03-11] MEDS: Pilocarpine 2% Ophth Drops 15 ML BOT L EYE SCH ×4 (09:26→21:24)
[2022-03-11] MEDS: LOTEPREDNOL ETABONATE 0.5% R EYE SCH (09:26)
[2022-03-11] MEDS: Atorvastatin Calcium 40 MG TAB PO SCH (21:15)
[2022-03-11] MEDS: Gabapentin 300 MG CAP PO SCH (21:15)
[2022-03-11] MEDS: Cyclobenzaprine 10 MG TAB PO SCH (21:15)
[2022-03-11] MEDS: LUMIGAN 0.01% OPHTHALMIC SOLUTION EA EYE SCH (21:25)
[2022-03-12 05:24] LABS: #Eosinphils 0.4 thou/uL (0.0-0.7); #Lymphocytes 1.3 thou/uL (1.20-3.40); #Monocytes 0.5 thou/uL (0.11-0.59); %Basophils 0.7 % (0.0-1.0); %Eosinophils 8.1 % (0.0-10.0); %Lymphocytes 24.9 % (21.0-51.0); %Monocytes 8.9 % (0.0-10.0); %Neutrophils 57.4 % (42.0-75.0); Hemoglobin 8.7 g/dL (14.0-18.0); Mean Corpuscular HGB CONC 31.4 g/dL (32.0-36.0); Mean Corpuscular Hemoglobin 29.3 pg (27.0-31.0); Mean Corpuscular Volume 93.5 fL (78.0-98.0); Platelet Count 106 thou/uL (130-400); RBC Distribution Width 14.4 % (11.5-14.5); Red Blood Cell (RBC) Count 2.97 mill/uL (4.70-6.10); White Blood Cell (WBC) Count 5.3 thou/uL (4.8-10.8)
[2022-03-12 05:43] LABS: ALT (SGPT) 13 U/L (8-55); AST (SGOT) 22 U/L (5-34); Albumin 3.1 g/dL (3.4-4.8); Alkaline Phosphatase 57 U/L (40-110); Anion Gap 13 mmol/L (10-20); BUN (Urea Nitrogen) 35 mg/dL (8.4-25.7); Bilirubin, Total 0.4 mg/dL (0.2-1.2); CRP (Inflammatory) 0.69 mg/dL (= or < 0.5); Calc. Creatinine Clearance 22 mL/min (70-130); Calcium 8.2 mg/dL (7.8-10.44); Carbon Dioxide 19 mmol/L (23-31); Chloride 112 mmol/L (98-107); Globulin 2.6 g/dL (2.4-3.5); Glucose 96 mg/dL (80-115); Potassium 4.4 mmol/L (3.5-5.1); Protein, Total 5.7 g/dL (5.8-8.1); Sodium 140 mmol/L (136-145)
[2022-03-12] MEDS: Pilocarpine 2% Ophth Drops 15 ML BOT L EYE SCH ×4 (11:09→19:52)
[2022-03-12] MEDS: Dorzolamide HCl 2% Ophth Soln 10 ml Bottle EA EYE SCH ×2 (11:09→19:50)
[2022-03-12] MEDS: Imatinib Mesylate [Gleevec] 100 MG Tablet PO SCH ×3 (11:09→11:12)
[2022-03-12] MEDS: Aspirin 81 mg Enteric Coated Tablet PO SCH (11:10)
[2022-03-12] MEDS: Losartan Potassium 50 MG TAB PO SCH (11:10)
[2022-03-12] MEDS: Ampicillin/Sulbactam 3 GM in Sodium Chloride 0.9% 100 ML IVPB SCH ×2 (11:16→19:53)
[2022-03-12] MEDS: LOTEPREDNOL ETABONATE 0.5% R EYE SCH (11:17)
[2022-03-12] MEDS: Gabapentin 300 MG CAP PO SCH (19:52)
[2022-03-12] MEDS: Cyclobenzaprine 10 MG TAB PO SCH (19:52)
[2022-03-12] MEDS: Atorvastatin Calcium 40 MG TAB PO SCH (19:52)
[2022-03-12] MEDS: LUMIGAN 0.01% OPHTHALMIC SOLUTION EA EYE SCH (19:55)
[2022-03-13] MEDS: Ampicillin/Sulbactam 3 GM in Sodium Chloride 0.9% 100 ML IVPB SCH ×2 (08:14→21:07)
[2022-03-13] MEDS: Aspirin 81 mg Enteric Coated Tablet PO SCH (08:16)
[2022-03-13] MEDS: Losartan Potassium 50 MG TAB PO SCH (08:16)
[2022-03-13] MEDS: Dorzolamide HCl 2% Ophth Soln 10 ml Bottle EA EYE SCH ×2 (08:16→20:56)
[2022-03-13] MEDS: LOTEPREDNOL ETABONATE 0.5% R EYE SCH (08:17)
[2022-03-13] MEDS: Pilocarpine 2% Ophth Drops 15 ML BOT L EYE SCH ×4 (08:17→20:58)
[2022-03-13] MEDS: Imatinib Mesylate [Gleevec] 100 MG Tablet PO SCH ×3 (08:18→17:06)
[2022-03-13] MEDS: LUMIGAN 0.01% OPHTHALMIC SOLUTION EA EYE SCH (20:59)
[2022-03-13] MEDS: Atorvastatin Calcium 40 MG TAB PO SCH (21:00)
[2022-03-13] MEDS: Cyclobenzaprine 10 MG TAB PO SCH (21:00)
[2022-03-13] MEDS: Gabapentin 300 MG CAP PO SCH (21:05)
[2022-03-14] MEDS: Losartan Potassium 50 MG TAB PO SCH (09:34)
[2022-03-14] MEDS: Ampicillin/Sulbactam 3 GM in Sodium Chloride 0.9% 100 ML IVPB SCH ×2 (09:34→21:16)
[2022-03-14] MEDS: LOTEPREDNOL ETABONATE 0.5% R EYE SCH (09:34)
[2022-03-14] MEDS: Aspirin 81 mg Enteric Coated Tablet PO SCH (09:34)
[2022-03-14] MEDS: Imatinib Mesylate [Gleevec] 100 MG Tablet PO SCH ×3 (09:35→17:02)
[2022-03-14] MEDS: Dorzolamide HCl 2% Ophth Soln 10 ml Bottle EA EYE SCH ×2 (09:35→21:18)
[2022-03-14] MEDS: Pilocarpine 2% Ophth Drops 15 ML BOT L EYE SCH ×4 (09:36→21:20)
[2022-03-14] MEDS: Gabapentin 300 MG CAP PO SCH (21:17)
[2022-03-14] MEDS: Atorvastatin Calcium 40 MG TAB PO SCH (21:17)
[2022-03-14] MEDS: Cyclobenzaprine 10 MG TAB PO SCH (21:18)
[2022-03-14] MEDS: LUMIGAN 0.01% OPHTHALMIC SOLUTION EA EYE SCH (21:19)
[2022-03-15] MEDS: Ampicillin/Sulbactam 3 GM in Sodium Chloride 0.9% 100 ML IVPB SCH ×2 (09:20→20:52)
[2022-03-15] MEDS: Losartan Potassium 50 MG TAB PO SCH (09:21)
[2022-03-15] MEDS: Aspirin 81 mg Enteric Coated Tablet PO SCH (09:21)
[2022-03-15] MEDS: Dorzolamide HCl 2% Ophth Soln 10 ml Bottle EA EYE SCH ×2 (09:22→20:53)
[2022-03-15] MEDS: Imatinib Mesylate [Gleevec] 100 MG Tablet PO SCH ×3 (09:22→17:44)
[2022-03-15] MEDS: LOTEPREDNOL ETABONATE 0.5% R EYE SCH (09:23)
[2022-03-15] MEDS: Pilocarpine 2% Ophth Drops 15 ML BOT L EYE SCH ×4 (09:24→20:53)
[2022-03-15 16:05] LABS: SARS-CoV-2 PCR by NAA Not Detected (NotDetected)
[2022-03-15] MEDS: Atorvastatin Calcium 40 MG TAB PO SCH (20:52)
[2022-03-15] MEDS: Cyclobenzaprine 10 MG TAB PO SCH (20:52)
[2022-03-15] MEDS: Gabapentin 300 MG CAP PO SCH (20:52)
[2022-03-15] MEDS: LUMIGAN 0.01% OPHTHALMIC SOLUTION EA EYE SCH (20:54)
[2022-03-16] MEDS: Losartan Potassium 50 MG TAB PO SCH (08:45)
[2022-03-16] MEDS: Aspirin 81 mg Enteric Coated Tablet PO SCH (08:45)
[2022-03-16] MEDS: Imatinib Mesylate [Gleevec] 100 MG Tablet PO SCH ×3 (08:46→16:35)
[2022-03-16] MEDS: Dorzolamide HCl 2% Ophth Soln 10 ml Bottle EA EYE SCH ×2 (08:46→20:24)
[2022-03-16] MEDS: LOTEPREDNOL ETABONATE 0.5% R EYE SCH (08:47)
[2022-03-16] MEDS: Pilocarpine 2% Ophth Drops 15 ML BOT L EYE SCH ×4 (08:47→20:23)
[2022-03-16] MEDS: Ampicillin/Sulbactam 3 GM in Sodium Chloride 0.9% 100 ML IVPB SCH ×2 (08:49→20:27)
[2022-03-16 13:04] VITALS: BMI 17.9
[2022-03-16] MEDS: Cyclobenzaprine 10 MG TAB PO SCH (20:22)
[2022-03-16] MEDS: Gabapentin 300 MG CAP PO SCH (20:22)
[2022-03-16] MEDS: Atorvastatin Calcium 40 MG TAB PO SCH (20:23)
[2022-03-16] MEDS: LUMIGAN 0.01% OPHTHALMIC SOLUTION EA EYE SCH (20:26)
[2022-03-17] MEDS: Losartan Potassium 50 MG TAB PO SCH (10:16)
[2022-03-17] MEDS: Aspirin 81 mg Enteric Coated Tablet PO SCH (10:16)
[2022-03-17] MEDS: Dorzolamide HCl 2% Ophth Soln 10 ml Bottle EA EYE SCH (10:16)
[2022-03-17] MEDS: LOTEPREDNOL ETABONATE 0.5% R EYE SCH (10:17)
[2022-03-17] MEDS: Imatinib Mesylate [Gleevec] 100 MG Tablet PO SCH ×2 (10:17→12:42)
[2022-03-17] MEDS: Pilocarpine 2% Ophth Drops 15 ML BOT L EYE SCH ×2 (10:18→12:43)
[2022-03-17 10:40] VITALS: BP 120/65; TEMP 97.9
== END 2022-03-17 16:03 | disposition home or self-care (01) | DRG 540 ==
LOC: MADMS 13:32
PROVIDERS: ADMIT Family Medicine; ATTEND Family Medicine
DX: M86.8X8 Other osteomyelitis, other site (principal); C92.10 Chronic myeloid leukemia, BCR/ABL-positive, not having achieved remission; N18.4 Chronic kidney disease, stage 4 (severe); B37.0 Candidal stomatitis; R26.81 Unsteadiness on feet; I12.9 Hypertensive chronic kidney disease with stage 1 through stage 4 chronic kidney disease, or unspecified chronic kidney disease; H40.9 Unspecified glaucoma; Z86.73 Personal history of transient ischemic attack (TIA), and cerebral infarction without residual deficits
CPT/HCPCS: 80053; 85025; 85652; 86140; J0295; J3490; U0003; U0005

== ENCOUNTER 2022-04-17 17:15 | Outpatient (CLI) | payer MEDICARE | END 2022-04-17 17:16 | disposition home or self-care (01) | LOC: MADLAB 17:15 | PROVIDERS: ATTEND Family Medicine | DX: M86.9 Osteomyelitis, unspecified (principal) | CPT/HCPCS: 87070; 87077; 87186; 87205 ==

== ENCOUNTER 2022-06-10 15:13 | Emergency (ER) | payer MEDICARE ==
[2022-06-10] MEDS ORDERED: Lactated Ringer's 1,000 ML ONE (16:32)
[2022-06-10 16:33] LABS: #Basophils 0.1 thou/uL (0.0-0.2); #Eosinphils 0.1 thou/uL (0.0-0.7); #Lymphocytes 1.4 thou/uL (1.20-3.40); #Monocytes 0.4 thou/uL (0.11-0.59); #Neutrophils 2.3 thou/uL (1.40-6.50); %Basophils 1.2 % (0.0-1.0); %Eosinophils 3.3 % (0.0-10.0); %Lymphocytes 32.4 % (21.0-51.0); %Monocytes 8.9 % (0.0-10.0); %Neutrophils 54.2 % (42.0-75.0); Hemoglobin 10.6 g/dL (14.0-18.0); Mean Corpuscular HGB CONC 30.2 g/dL (32.0-36.0); Mean Corpuscular Hemoglobin 29.2 pg (27.0-31.0); Mean Corpuscular Volume 96.8 fL (78.0-98.0); Platelet Count 81 thou/uL (130-400); Platelet Morphology Comment Appears Decreased; RBC Distribution Width 14.8 % (11.5-14.5); Red Blood Cell (RBC) Count 3.63 mill/uL (4.70-6.10); White Blood Cell (WBC) Count 4.3 thou/uL (4.8-10.8)
[2022-06-10 16:37] LABS: ALT (SGPT) 18 U/L (8-55); AST (SGOT) 17 U/L (5-34); Albumin 3.5 g/dL (3.4-4.8); Alkaline Phosphatase 62 U/L (40-110); Anion Gap 10 mmol/L (10-20); BUN (Urea Nitrogen) 44 mg/dL (8.4-25.7); Bilirubin, Total 0.7 mg/dL (0.2-1.2); Calc. Creatinine Clearance 0 mL/min (70-130); Calcium 8.1 mg/dL (7.8-10.44); Carbon Dioxide 15 mmol/L (23-31); Chloride 116 mmol/L (98-107); Estimated GFR 17; Globulin 2.3 g/dL (2.4-3.5); Glucose 69 mg/dL (80-115); Lipase 75 U/L (8-78); Magnesium 2.1 mg/dL (1.6-2.6); Potassium 5.3 mmol/L (3.5-5.1); Protein, Total 5.8 g/dL (5.8-8.1); Sodium 136 mmol/L (136-145)
[2022-06-10 17:33] LABS: Base Excess-Venous -15.8 mmol/L (-2.0 to 3.0); CO2 Tension (PvCO2) 40.9 mmHg (42.0-51.0); Calcium, Ionized 1.23 mmol/L (1.15-1.33); Chloride 117 mmol/L (98-107); Hemoglobin - Calc 12.3 g/dL (14.0-18.0); Potassium 5.4 mmol/L (3.5-5.1); Sodium 141 mmol/L (138-145); T. Carbon Dioxide 14.3 mmol/L (22.0-28.0)
[2022-06-10] MEDS ORDERED: Sodium Bicarb 50 MEQ/50 ML Abboject 8.4% SYRINGE ONE ×2 (18:11→18:12)
[2022-06-10] MEDS ORDERED: Dextrose 5% in Water 1,000 ML ONE (18:12)
[2022-06-10 18:56] LABS: Bilirubin Negative (Negative); Blood, Urine Negative (Negative); Clarity Clear (Clear); Glucose, Urine (Dipstick) Negative (Negative); Ketone, Urine Negative (Negative); Leukocyte Negative (Negative); Nitrite Negative (Negative); Protein, Urine (Dipstick) Negative (Neg-Trace); Specific Gravity, Urine 1.015 (1.005-1.030); Urobilinogen 0.2 mg/dL (Less than 2); pH, Urine 5.5 (5.0-9.0)
[2022-06-10 20:18] LABS: CKMB 4.6 ng/mL (0-6.6)
== END 2022-06-10 22:51 | disposition short-term general hospital (02) ==
LOC: MADERS 15:13
DX: I95.9 Hypotension, unspecified (principal); I12.9 Hypertensive chronic kidney disease with stage 1 through stage 4 chronic kidney disease, or unspecified chronic kidney disease; N18.4 Chronic kidney disease, stage 4 (severe); E87.5 Hyperkalemia; E16.2 Hypoglycemia, unspecified; D61.818 Other pancytopenia; E87.2 Acidosis; M79.602 Pain in left arm; R77.8 Other specified abnormalities of plasma proteins; D64.9 Anemia, unspecified; F17.210 Nicotine dependence, cigarettes, uncomplicated; C92.11 Chronic myeloid leukemia, BCR/ABL-positive, in remission; H54.40 Blindness, one eye, unspecified eye; Z86.73 Personal history of transient ischemic attack (TIA), and cerebral infarction without residual deficits; Z79.82 Long term (current) use of aspirin; Z79.899 Other long term (current) drug therapy
CPT/HCPCS: 36415; 36416; 71045; 80053; 81003; 82330; 82553; 82803; 83605; 83690; 83735; 83880; 84484; 85025; 85379; 87040; 93005; 94760; 96360; J7070; J7120

== ENCOUNTER 2025-07-03 09:26 | Outpatient (CLI) | payer MEDICARE | END 2025-07-03 09:27 | disposition home or self-care (01) | LOC: MADCT 09:26 | PROVIDERS: ATTEND Orthopaedic Surgery Sports Medicine | DX: M79.651 Pain in right thigh (principal); M86.651 Other chronic osteomyelitis, right thigh; J32.9 Chronic sinusitis, unspecified ==